=== PATIENT | male | born 1950 | race Caucasian/White ===

== ENCOUNTER 2016-09-25 13:37 | Outpatient (CLI) | payer MEDICARE, OTHER ==
[2016-09-25 16:39] LABS: Anion Gap 17 mmol/L (10-20); BUN (Urea Nitrogen) 97 mg/dL (8.4-25.7); Calc. Creatinine Clearance 0 mL/min (70-130); Calcium 9.3 mg/dL (7.8-10.44); Carbon Dioxide 20 mmol/L (23-31); Chloride 107 mmol/L (98-107); Estimated GFR-MDRD 22
== END 2016-09-25 13:38 | disposition home or self-care (01) ==
LOC: BURLAB 13:37
PROVIDERS: ATTEND Internal Medicine Nephrology
DX: N18.3 Chronic kidney disease, stage 3 (moderate) (principal)
CPT/HCPCS: 36415; 80048

== ENCOUNTER 2016-10-25 09:44 | Outpatient (CLI) | payer MEDICARE, OTHER ==
[2016-10-25 11:01] LABS: Anion Gap 16 mmol/L (10-20); BUN (Urea Nitrogen) 94 mg/dL (8.4-25.7); Calc. Creatinine Clearance 0 mL/min (70-130); Calcium 8.9 mg/dL (7.8-10.44); Carbon Dioxide 26 mmol/L (23-31); Chloride 99 mmol/L (98-107); Estimated GFR-MDRD 24
== END 2016-10-25 09:45 | disposition home or self-care (01) ==
LOC: BURLAB 09:44
PROVIDERS: ATTEND Internal Medicine Nephrology
DX: N18.4 Chronic kidney disease, stage 4 (severe) (principal)
CPT/HCPCS: 36415; 80048

== ENCOUNTER 2016-11-03 15:55 | Outpatient (CLI) | payer MEDICARE, OTHER ==
[2016-11-03 18:20] LABS: Hematocrit 32.5 % (42.0-52.0)
[2016-11-03 18:27] LABS: Calc. Creatinine Clearance 0 mL/min (70-130); Estimated GFR-MDRD 17; Magnesium 1.6 mg/dL (1.6-2.6)
== END 2016-11-03 15:56 | disposition home or self-care (01) ==
LOC: BURLAB 15:55
PROVIDERS: ATTEND Internal Medicine Nephrology
DX: N18.3 Chronic kidney disease, stage 3 (moderate) (principal)
CPT/HCPCS: 36415; 82565; 83735; 84132; 85014; 85018

== ENCOUNTER 2017-02-26 14:10 | Outpatient (CLI) | payer MEDICARE, OTHER ==
[2017-02-26 16:01] LABS: Hemoglobin 8.8 g/dL (14.0-18.0)
[2017-02-26 16:20] LABS: Anion Gap 19 mmol/L (10-20); BUN (Urea Nitrogen) 110 mg/dL (8.4-25.7); Calc. Creatinine Clearance 0 mL/min (70-130); Calcium 8.5 mg/dL (7.8-10.44); Carbon Dioxide 16 mmol/L (23-31); Chloride 110 mmol/L (98-107); Estimated GFR-MDRD 19; Glucose 91 mg/dL (80-115); Potassium 3.9 mmol/L (3.5-5.1); Sodium 141 mmol/L (136-145)
== END 2017-02-26 14:11 | disposition home or self-care (01) ==
LOC: BURLAB 14:10
PROVIDERS: ATTEND Internal Medicine Nephrology
DX: N18.3 Chronic kidney disease, stage 3 (moderate) (principal); D63.1 Anemia in chronic kidney disease; R60.0 Localized edema
CPT/HCPCS: 36415; 80048; 85014; 85018

== ENCOUNTER 2017-04-27 16:09 | Inpatient (IN) | payer MEDICARE, OTHER ==
[2017-04-27] MEDS: HumaLOG 300 UNITS/3 ML VIAL SC SCH (18:29)
[2017-04-27] MEDS ORDERED: INSULIN DETEMIR SQ SCH (21:00)
[2017-04-27] MEDS: Furosemide 40 MG TAB PO SCH (21:22)
[2017-04-27] MEDS: Levemir Flexpen 100 UNITS/ML PEN SC SCH (21:22)
[2017-04-27] MEDS: Heparin 5,000 UNITS/ML VIAL SC SCH (21:22)
[2017-04-27] MEDS: Sodium Bicarbonate Tab 325 MG TAB PO SCH (21:23)
[2017-04-28] MEDS: Levothyroxine Sodium 25 MCG TAB PO SCH (06:03)
[2017-04-28] MEDS ORDERED: Heparin 5,000 UNITS/ML VIAL ONE ×2 (08:20→21:33)
[2017-04-28] MEDS: HumaLOG 300 UNITS/3 ML VIAL SC SCH ×3 (08:46→17:07)
[2017-04-28] MEDS: Levemir Flexpen 100 UNITS/ML PEN SC SCH ×2 (08:48→21:40)
[2017-04-28] MEDS: Ferrous Sulfate 325 MG TAB PO SCH (08:51)
[2017-04-28] MEDS: Furosemide 40 MG TAB PO SCH ×2 (08:53→20:12)
[2017-04-28] MEDS: Atorvastatin Calcium 10 MG TAB PO SCH (08:53)
[2017-04-28] MEDS: Heparin 5,000 UNITS/ML VIAL SC SCH ×2 (08:54→21:41)
[2017-04-28] MEDS: Folic Acid 1 MG TAB PO SCH (08:54)
[2017-04-28] MEDS: (Sevelamer Carbonate [Renvela] 800 MG) PO SCH ×3 (08:56→17:14)
[2017-04-28] MEDS: Sodium Bicarbonate Tab 325 MG TAB PO SCH ×3 (08:59→20:12)
[2017-04-28] MEDS: Acetaminophen 325 MG TAB PO PRN (20:12)
[2017-04-29] MEDS: Levothyroxine Sodium 25 MCG TAB PO SCH (05:44)
[2017-04-29] MEDS: Acetaminophen 325 MG TAB PO PRN ×2 (05:44→17:41)
[2017-04-29] MEDS ORDERED: Heparin 5,000 UNITS/ML VIAL ONE ×2 (08:21→21:02)
[2017-04-29] MEDS: Ferrous Sulfate 325 MG TAB PO SCH (08:33)
[2017-04-29] MEDS: (Sevelamer Carbonate [Renvela] 800 MG) PO SCH ×3 (08:34→17:39)
[2017-04-29] MEDS: Atorvastatin Calcium 10 MG TAB PO SCH (08:35)
[2017-04-29] MEDS: Furosemide 40 MG TAB PO SCH ×2 (08:36→21:38)
[2017-04-29] MEDS: Folic Acid 1 MG TAB PO SCH (08:36)
[2017-04-29] MEDS: Sodium Bicarbonate Tab 325 MG TAB PO SCH ×3 (08:37→21:38)
[2017-04-29] MEDS: Heparin 5,000 UNITS/ML VIAL SC SCH ×2 (08:38→21:38)
[2017-04-29] MEDS: Levemir Flexpen 100 UNITS/ML PEN SC SCH ×2 (08:39→21:40)
[2017-04-29] MEDS: HumaLOG 300 UNITS/3 ML VIAL SC SCH ×3 (08:40→17:39)
[2017-04-29] MEDS ORDERED: Metolazone 5 MG TAB PO SCH (10:30)
[2017-04-30] MEDS: Levothyroxine Sodium 25 MCG TAB PO SCH (05:48)
[2017-04-30 05:53] LABS: ALT (SGPT) 8 U/L (8-55); AST (SGOT) 44 U/L (5-34); Albumin 2.9 g/dL (3.4-4.8); Alkaline Phosphatase 183 U/L (40-150); Anion Gap 16 mmol/L (10-20); BUN (Urea Nitrogen) 102 mg/dL (8.4-25.7); Bilirubin, Total 1.2 mg/dL (0.2-1.2); Calc. Creatinine Clearance 46 mL/min (70-130); Calcium 8.1 mg/dL (7.8-10.44); Carbon Dioxide 23 mmol/L (23-31); Chloride 107 mmol/L (98-107); Estimated GFR-MDRD 24; Globulin 3.6 g/dL (2.4-3.5); Glucose 88 mg/dL (80-115); Potassium 3.2 mmol/L (3.5-5.1); Protein, Total 6.5 g/dL (5.8-8.1); Sodium 143 mmol/L (136-145)
[2017-04-30 06:51] LABS: #Basophils 0.1 thou/uL (0.0-0.2); #Eosinphils 0.3 thou/uL (0.0-0.7); #Lymphocytes 0.9 thou/uL (1.20-3.40); #Monocytes 0.7 thou/uL (0.11-0.59); #Neutrophils 3.2 thou/uL (1.40-6.50); %Eosinophils 6.2 % (0.0-10.0); %Monocytes 13.6 % (0.0-10.0); %Neutrophils 61.3 % (42.0-75.0); Hemoglobin 8.4 g/dL (14.0-18.0); Mean Corpuscular Hemoglobin 33.8 pg (27.0-31.0); Platelet Count 115 thou/uL (130-400); RBC Distribution Width 15.9 % (11.5-14.5); Red Blood Cell (RBC) Count 2.47 mill/uL (4.70-6.10); White Blood Cell (WBC) Count 5.3 thou/uL (4.8-10.8)
[2017-04-30] MEDS ORDERED: Heparin 5,000 UNITS/ML VIAL ONE (08:43)
[2017-04-30] MEDS: Ferrous Sulfate 325 MG TAB PO SCH (08:46)
[2017-04-30] MEDS: (Sevelamer Carbonate [Renvela] 800 MG) PO SCH ×3 (08:48→17:06)
[2017-04-30] MEDS: Atorvastatin Calcium 10 MG TAB PO SCH (08:48)
[2017-04-30] MEDS: Furosemide 40 MG TAB PO SCH ×2 (08:50→21:18)
[2017-04-30] MEDS: Folic Acid 1 MG TAB PO SCH (08:50)
[2017-04-30] MEDS: Sodium Bicarbonate Tab 325 MG TAB PO SCH ×3 (08:51→21:18)
[2017-04-30] MEDS: Metolazone 5 MG TAB PO SCH (08:51)
[2017-04-30] MEDS ORDERED: Levemir Flexpen 100 UNITS/ML PEN SC SCH (09:00)
[2017-04-30] MEDS: Heparin 5,000 UNITS/ML VIAL SC SCH ×2 (10:49→21:18)
[2017-04-30] MEDS: HumaLOG 300 UNITS/3 ML VIAL SC SCH (10:54)
[2017-04-30] MEDS ORDERED: Potassium Chloride 20 MEQ TAB PO SCH (12:00)
[2017-04-30] MEDS: Levemir Flexpen 100 UNITS/ML PEN SC SCH (21:19)
[2017-05-01] MEDS: Acetaminophen 325 MG TAB PO PRN ×2 (02:38→13:26)
[2017-05-01] MEDS: Levothyroxine Sodium 25 MCG TAB PO SCH (05:40)
[2017-05-01] MEDS: Ferrous Sulfate 325 MG TAB PO SCH (08:09)
[2017-05-01] MEDS: (Sevelamer Carbonate [Renvela] 800 MG) PO SCH ×3 (08:09→17:33)
[2017-05-01] MEDS: Atorvastatin Calcium 10 MG TAB PO SCH (08:10)
[2017-05-01] MEDS: Potassium Chloride 20 MEQ TAB PO SCH (08:10)
[2017-05-01] MEDS: Furosemide 40 MG TAB PO SCH ×2 (08:11→20:45)
[2017-05-01] MEDS: Folic Acid 1 MG TAB PO SCH (08:11)
[2017-05-01] MEDS: Sodium Bicarbonate Tab 325 MG TAB PO SCH ×3 (08:12→20:45)
[2017-05-01] MEDS: Levemir Flexpen 100 UNITS/ML PEN SC SCH ×2 (08:17→20:45)
[2017-05-01] MEDS: Heparin 5,000 UNITS/ML VIAL SC SCH ×2 (08:18→20:46)
[2017-05-01] MEDS: traMADol HCl 50 MG TAB PO PRN (11:14)
[2017-05-02] MEDS: Levothyroxine Sodium 25 MCG TAB PO SCH (05:35)
[2017-05-02] MEDS: traMADol HCl 50 MG TAB PO PRN (05:35)
[2017-05-02] MEDS: Atorvastatin Calcium 10 MG TAB PO SCH (08:58)
[2017-05-02] MEDS: Furosemide 40 MG TAB PO SCH ×2 (08:58→20:58)
[2017-05-02] MEDS: Sodium Bicarbonate Tab 325 MG TAB PO SCH ×3 (08:58→20:58)
[2017-05-02] MEDS: Metolazone 5 MG TAB PO SCH (08:59)
[2017-05-02] MEDS: Potassium Chloride 20 MEQ TAB PO SCH (09:00)
[2017-05-02] MEDS: Ferrous Sulfate 325 MG TAB PO SCH (09:00)
[2017-05-02] MEDS: Folic Acid 1 MG TAB PO SCH (09:00)
[2017-05-02] MEDS: Heparin 5,000 UNITS/ML VIAL SC SCH ×2 (09:01→20:59)
[2017-05-02] MEDS: (Sevelamer Carbonate [Renvela] 800 MG) PO SCH ×3 (09:04→18:31)
[2017-05-02] MEDS: Levemir Flexpen 100 UNITS/ML PEN SC SCH ×2 (09:17→20:59)
[2017-05-03] MEDS: traMADol HCl 50 MG TAB PO PRN (03:41)
[2017-05-03] MEDS: Levothyroxine Sodium 25 MCG TAB PO SCH (05:15)
[2017-05-03 06:14] VITALS: BMI 41.5
[2017-05-03 06:16] LABS: ALT (SGPT) 9 U/L (8-55); AST (SGOT) 39 U/L (5-34); Albumin 2.9 g/dL (3.4-4.8); Alkaline Phosphatase 219 U/L (40-150); Anion Gap 16 mmol/L (10-20); BUN (Urea Nitrogen) 108 mg/dL (8.4-25.7); Calc. Creatinine Clearance 39 mL/min (70-130); Calcium 7.8 mg/dL (7.8-10.44); Carbon Dioxide 23 mmol/L (23-31); Chloride 106 mmol/L (98-107); Estimated GFR-MDRD 19; Globulin 3.2 g/dL (2.4-3.5); Glucose 95 mg/dL (80-115); Potassium 3.7 mmol/L (3.5-5.1); Protein, Total 6.1 g/dL (5.8-8.1); Sodium 141 mmol/L (136-145)
[2017-05-03 07:24] LABS: Hemoglobin 7.9 g/dL (14.0-18.0); Mean Corpuscular HGB CONC 32.7 g/dL (32.0-36.0); Mean Corpuscular Hemoglobin 33.2 pg (27.0-31.0); Mean Platelet Volume 7.3 fL (7.4-10.4); Platelet Count 144 thou/uL (130-400); RBC Distribution Width 15.2 % (11.5-14.5); Red Blood Cell (RBC) Count 2.38 mill/uL (4.70-6.10); White Blood Cell (WBC) Count 4.7 thou/uL (4.8-10.8)
[2017-05-03 08:18] LABS: Eosinophils 4 % (0-10); Lymphocytes 23 % (21-51); MDiff Complete? YES; Monocytes 8 % (0-10); Neutrophil 64 % (42-75)
[2017-05-03] MEDS: (Sevelamer Carbonate [Renvela] 800 MG) PO SCH ×3 (08:46→17:25)
[2017-05-03] MEDS: Levemir Flexpen 100 UNITS/ML PEN SC SCH ×2 (08:47→21:16)
[2017-05-03] MEDS: Heparin 5,000 UNITS/ML VIAL SC SCH ×2 (08:48→21:16)
[2017-05-03] MEDS: Ferrous Sulfate 325 MG TAB PO SCH (08:49)
[2017-05-03] MEDS: Sodium Bicarbonate Tab 325 MG TAB PO SCH ×3 (08:49→21:15)
[2017-05-03] MEDS: Folic Acid 1 MG TAB PO SCH (08:49)
[2017-05-03] MEDS: Atorvastatin Calcium 10 MG TAB PO SCH (08:49)
[2017-05-03] MEDS: Furosemide 40 MG TAB PO SCH ×2 (08:50→21:15)
[2017-05-03] MEDS: Potassium Chloride 20 MEQ TAB PO SCH (08:50)
[2017-05-04] MEDS: Levothyroxine Sodium 25 MCG TAB PO SCH (05:49)
[2017-05-04 06:27] VITALS: BP 128/60; TEMP 97.7
[2017-05-04] MEDS: Acetaminophen 325 MG TAB PO PRN (07:44)
[2017-05-04] MEDS: (Sevelamer Carbonate [Renvela] 800 MG) PO SCH (07:44)
[2017-05-04] MEDS: Potassium Chloride 20 MEQ TAB PO SCH (07:45)
[2017-05-04] MEDS: Ferrous Sulfate 325 MG TAB PO SCH (07:45)
[2017-05-04] MEDS: Folic Acid 1 MG TAB PO SCH (08:30)
[2017-05-04] MEDS: Atorvastatin Calcium 10 MG TAB PO SCH (08:31)
[2017-05-04] MEDS: Furosemide 40 MG TAB PO SCH (08:32)
[2017-05-04] MEDS: Sodium Bicarbonate Tab 325 MG TAB PO SCH (08:33)
[2017-05-04] MEDS: Heparin 5,000 UNITS/ML VIAL SC SCH (08:36)
[2017-05-04] MEDS: Levemir Flexpen 100 UNITS/ML PEN SC SCH (08:37)
[2017-05-04] MEDS ORDERED: Metolazone 5 MG TAB PO SCH (09:00)
--- NOTE | 2017-05-04 15:07 | DIS ---
DATE OF ADMISSION: 04/27/2017 DATE OF DISCHARGE: 05/04/2017 ADMISSION DIAGNOSES: Physical deconditioning; lymphedema; chronic kidney disease, stage 4; insulin- dependent diabetes mellitus; hypertension; hyperlipidemia; hypothyroidism. SECONDARY DIAGNOSES: Bradycardia, hypokalemia. PROCEDURES: None. HOSPITAL COURSE: A 67-year-old male transitioned to our facility to participate with PT/OT secondar y to hospital admission at [facility] in [place], where he was diuresed for volume overload and tr eated for acute worsening of chronic kidney disease. He had been evaluated by Dr. Blackburn with horacio lópez done for AV fistula, which is currently in the maturing process. The patient was continued on his usual medications here; however, did have potassium supplemented to treat his hypokalemia. He d id have some weight gain during his stay, 5 pounds in total, and secondary to this the Zaroxolyn was increased from Sunday, Sunday, and Sunday dosing to daily dosing. The patient had noted bradyca rdia during his stay and thus had followup appointment scheduled with Dr. Waterman with reduction of his metoprolol dose from 50 mg b.i.d. to 25 mg. He otherwise had no significant issues during his stay and was able to participate with PT, OT satisfactorily to meet the goals for them to deem him a ppropriate for discharge to home. He will continue further physical therapy at [facility]. DISPOSITION: He will be discharged to his home setting and will follow up with his primary care pro vider, Dr. Gera Rooney within the next week. DISCHARGE MEDICATIONS: Aspirin 81 mg p.o. daily, Lipitor 20 mg p.o. at bedtime, cholecalciferol b.i .d., ferrous sulfate 325 mg p.o. daily, folic acid 1 mg p.o. daily, Lasix 80 mg p.o. b.i.d., Levemir 5 units b.i.d., levothyroxine 75 mcg p.o. daily, Zaroxolyn 2.5 mg p.o. daily, metoprolol succinate 25 mg p.o. daily, Protonix 40 mg p.o. daily, Renvela 800 mg p.o. t.i.d., potassium chloride 20 mEq p .o. daily, sodium bicarbonate 325 mg p.o. t.i.d., and tramadol 50 mg p.o. q.6 hours p.r.n. pain.
== END 2017-05-04 14:00 | disposition home or self-care (01) | DRG 683 ==
LOC: BURMED 16:44
PROVIDERS: ADMIT Family Medicine; ATTEND Family Medicine
DX: I12.9 Hypertensive chronic kidney disease with stage 1 through stage 4 chronic kidney disease, or unspecified chronic kidney disease (principal); N18.4 Chronic kidney disease, stage 4 (severe); E11.22 Type 2 diabetes mellitus with diabetic chronic kidney disease; Z95.828 Presence of other vascular implants and grafts; E87.6 Hypokalemia; Z79.4 Long term (current) use of insulin; I89.0 Lymphedema, not elsewhere classified; E78.5 Hyperlipidemia, unspecified; E03.9 Hypothyroidism, unspecified; R00.1 Bradycardia, unspecified
CPT/HCPCS: 36415; 36416; 80053; 85025; G8978-GP-CK; G8979-GP-CI; G8987-GO-CL; G8988-GO-CI; J1644; J1815

== ENCOUNTER 2017-05-16 15:18 | Outpatient (CLI) | payer MEDICARE, OTHER ==
[2017-05-16 15:38] LABS: Hemoglobin 8.7 g/dL (14.0-18.0)
[2017-05-16 16:07] LABS: Anion Gap 20 mmol/L (10-20); BUN (Urea Nitrogen) 138 mg/dL (8.4-25.7); Calc. Creatinine Clearance 0 mL/min (70-130); Calcium 8.3 mg/dL (7.8-10.44); Carbon Dioxide 17 mmol/L (23-31); Chloride 107 mmol/L (98-107); Estimated GFR-MDRD 10; Glucose 112 mg/dL (80-115); Potassium 3.9 mmol/L (3.5-5.1); Sodium 140 mmol/L (136-145)
== END 2017-05-16 15:19 | disposition home or self-care (01) ==
LOC: BURLAB 15:18
PROVIDERS: ATTEND Internal Medicine Nephrology
DX: N18.4 Chronic kidney disease, stage 4 (severe) (principal); D63.1 Anemia in chronic kidney disease
CPT/HCPCS: 36415; 80048; 85014; 85018

== ENCOUNTER 2017-06-06 10:11 | Outpatient (CLI) | payer MEDICARE, OTHER ==
--- NOTE | 2017-06-06 18:52 | ULT ---
LEFT LOWER EXTREMITY VENOUS ULTRASOUND 06/06/17 Color duplex doppler ultrasonography of the deep veins of the left lower extremity was performed. Al l deep veins were freely compressible from groin to ankle. There was normal doppler response to augm entation maneuvers. No echogenic clot was seen. IMPRESSION: No evidence of DVT. POS: HOME
== END 2017-06-06 10:12 | disposition home or self-care (01) ==
LOC: BURULT 10:11
PROVIDERS: ATTEND Family Medicine
DX: R60.0 Localized edema (principal)

== ENCOUNTER 2017-10-18 15:20 | Outpatient (CLI) | payer MEDICARE, OTHER ==
--- NOTE | 2017-10-18 22:03 | RAD ---
RIGHT TOES 10/18/17 Comparison is made with a 08/03/15 study of the foot. 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 The remaining s econd metatarsal head is somewhat deformed and slightly lucent. This may be longstanding, however. Th ere is no obvious bone in the third toe apart from the very base of the proximal phalanx. This was no t the case in 2014. I do not have more recent studies to know if surgery has been done here or if the re has been infection. This toe does seem to be greatly swollen. The fourth and fifth toes appear scarlett ssly intact. The IP joint of the great toe is abnormal, particularly on the side of the proximal phal anx. Again, I do not know if this is erosion over time, due to infection, or prior surgery. Slight de formity of the distal phalanx of the great toe has progressed over time. The first MTP joint is erode d. Arterial calcifications are seen throughout. A large calcaneal spur is present. IMPRESSION: Marked swelling of what I presumed to be the third toe, but no bone is seen in this toe other than th e base of the proximal phalanx. I presume that there has been osteomyelitis. It would be useful if a more recent study were available for comparison. POS: HOME
== END 2017-10-18 15:21 | disposition home or self-care (01) ==
LOC: BURRAD 15:20
PROVIDERS: ATTEND Podiatrist Foot & Ankle Surgery
DX: L97.514 Non-pressure chronic ulcer of other part of right foot with necrosis of bone (principal)

== ENCOUNTER 2018-12-17 20:33 | Emergency (ER) | payer MEDICARE, MEDICAID | END 2018-12-17 21:04 | disposition home or self-care (01) | LOC: BURERS 20:33 | DX: S91.051A Open bite, right ankle, initial encounter (principal); S61.452A Open bite of left hand, initial encounter; S61.412A Laceration without foreign body of left hand, initial encounter; I48.91 Unspecified atrial fibrillation; E11.9 Type 2 diabetes mellitus without complications; Z79.4 Long term (current) use of insulin; Z99.2 Dependence on renal dialysis; Z79.899 Other long term (current) drug therapy; Z79.82 Long term (current) use of aspirin; W53.11XA Bitten by rat, initial encounter | CPT/HCPCS: 99283 ==

== ENCOUNTER 2019-05-27 00:44 | Emergency (ER) | payer MEDICARE, MEDICAID ==
[2019-05-27] MEDS ORDERED: Lidocaine Viscous Sol 2% 15 ml UD Cup ONE (01:08)
[2019-05-27] MEDS ORDERED: Mag-Al Plus 1200 MG/1200 MG/120 MG/30 ML UDCUP ONE (01:08)
[2019-05-27] MEDS ORDERED: Ondansetron ODT 4 MG TAB ONE (01:08)
[2019-05-27 01:44] LABS: #Basophils 0.1 thou/uL (0.0-0.2); #Eosinphils 0.1 thou/uL (0.0-0.7); #Lymphocytes 1.1 thou/uL (1.20-3.40); #Monocytes 0.4 thou/uL (0.11-0.59); %Basophils 1.2 % (0.0-1.0); %Eosinophils 2.3 % (0.0-10.0); %Lymphocytes 22.9 % (21.0-51.0); %Monocytes 9.4 % (0.0-10.0); %Neutrophils 64.3 % (42.0-75.0); Hemoglobin 11.2 g/dL (14.0-18.0); Mean Corpuscular HGB CONC 31.2 g/dL (32.0-36.0); Mean Corpuscular Hemoglobin 32.9 pg (27.0-31.0); Mean Platelet Volume 6.6 fL (7.4-10.4); Platelet Count 130 thou/uL (130-400); RBC Distribution Width 13.4 % (11.5-14.5); White Blood Cell (WBC) Count 4.6 thou/uL (4.8-10.8)
[2019-05-27 01:48] LABS: Macrocytosis SLIGHT = 6-15 cells (100X) (0-5/hpf); Platelet Morphology Comment Appears Adequate; Small Platelets SLIGHT
[2019-05-27 01:52] LABS: AST (SGOT) 29 U/L (5-34); Anion Gap 20 mmol/L (10-20); Bilirubin, Total 0.8 mg/dL (0.2-1.2); Calc. Creatinine Clearance 0 mL/min (70-130); Calcium 9.3 mg/dL (7.8-10.44); Carbon Dioxide 25 mmol/L (23-31); Chloride 99 mmol/L (98-107); Estimated GFR-MDRD 10; Potassium 3.5 mmol/L (3.5-5.1); Sodium 140 mmol/L (136-145)
[2019-05-27 01:54] LABS: CKMB 1.6 ng/mL (0-6.6)
[2019-05-27 01:58] LABS: ALT (SGPT) 14 U/L (8-55); Alkaline Phosphatase 117 U/L (40-150); BUN (Urea Nitrogen) 22 mg/dL (8.4-25.7); Glucose 135 mg/dL (80-115)
[2019-05-27] MEDS ORDERED: Aspirin Chewable 81 MG TAB ONE (02:00)
--- NOTE | 2019-05-27 07:38 | RAD ---
PORTABLE CHEST: Date: 05/27/19 An AP portable film at 0118 hours is compared with the 04/07/19 study from [facility]. The cardiomegaly is about the same as before. Prominence of the paratracheal tissues is thought to be tortuous great vessels and is no different than before. There is no deviation of the trachea. There is no vascular congestion, edema, or pleural effusion. No focal pulmonary infiltrate seen. IMPRESSION: Cardiomegaly, similar to the prior study. POS: HOME
== END 2019-05-27 02:20 | disposition short-term general hospital (02) ==
LOC: BURERS 00:44
DX: R07.2 Precordial pain (principal); I95.9 Hypotension, unspecified; R09.02 Hypoxemia; I49.9 Cardiac arrhythmia, unspecified; I48.91 Unspecified atrial fibrillation; Z79.4 Long term (current) use of insulin; E11.22 Type 2 diabetes mellitus with diabetic chronic kidney disease; Z99.2 Dependence on renal dialysis; Z79.899 Other long term (current) drug therapy; Z79.82 Long term (current) use of aspirin
CPT/HCPCS: 71045; 80053; 82553; 84484; 85025; 93005; Q0162

== ENCOUNTER 2019-08-11 16:54 | Emergency (ER) | payer MEDICARE, MEDICAID ==
[2019-08-11] MEDS ORDERED: Acetaminophen 500 MG TAB ONE (17:40)
[2019-08-11 17:52] LABS: Hemoglobin 11.7 g/dL (14.0-18.0); Mean Corpuscular HGB CONC 31.4 g/dL (32.0-36.0); Mean Corpuscular Hemoglobin 32.9 pg (27.0-31.0); Mean Platelet Volume 8.2 fL (7.4-10.4); Platelet Count 93 thou/uL (130-400); RBC Distribution Width 13.9 % (11.5-14.5); Red Blood Cell (RBC) Count 3.55 mill/uL (4.70-6.10); White Blood Cell (WBC) Count 3.5 thou/uL (4.8-10.8)
[2019-08-11 17:58] LABS: ALT (SGPT) 16 U/L (8-55); AST (SGOT) 40 U/L (5-34); Albumin 3.6 g/dL (3.4-4.8); Alkaline Phosphatase 88 U/L (40-110); Anion Gap 18 mmol/L (10-20); BUN (Urea Nitrogen) 20 mg/dL (8.4-25.7); Calc. Creatinine Clearance 0 mL/min (70-130); Calcium 8.3 mg/dL (7.8-10.44); Carbon Dioxide 28 mmol/L (23-31); Chloride 92 mmol/L (98-107); Estimated GFR-MDRD 10; Globulin 4.2 g/dL (2.4-3.5); Glucose 101 mg/dL (80-115); Protein, Total 7.8 g/dL (5.8-8.1); Sodium 135 mmol/L (136-145)
[2019-08-11 18:01] LABS: #Basophils 0.1 thou/uL (0.0-0.2); #Lymphocytes 0.4 thou/uL (1.20-3.40); #Monocytes 0.4 thou/uL (0.11-0.59); #Neutrophils 2.7 thou/uL (1.40-6.50); %Basophils 2.3 % (0.0-1.0); %Eosinophils 0.1 % (0.0-10.0); %Lymphocytes 9.9 % (21.0-51.0); %Monocytes 11.5 % (0.0-10.0); %Neutrophils 76.1 % (42.0-75.0); Band 15 % (5-11); Lymphocytes 10 % (21-51); MDiff Complete? YES; Macrocytosis MODERATE=16-30 cells (100X) (0-5/hpf); Monocytes 8 % (0-10); Neutrophil 64 % (42-75); Reactive Lymphocytes 2 % (0-10)
[2019-08-11] MEDS ORDERED: Sodium Chloride 0.9% 100 ML ONE (18:56)
[2019-08-11] MEDS ORDERED: Piperacillin/Tazobactam 4.5 GM VIAL ONE (18:56)
--- NOTE | 2019-08-11 19:48 | RAD ---
CHEST TWO VIEWS: 08/11/2019 COMPARISON: 05/27/2009 FINDINGS: The heart is mildly enlarged. The vessels seem mildly congested today and there is also a small left pleural effusion. Findings suggest changes of congestive heart failure. An old healed fracture is not ed on the right. No lobar consolidations were seen. IMPRESSION: Mild congestive changes. POS: HOME
== END 2019-08-11 19:55 | disposition short-term general hospital (02) ==
LOC: BURERS 16:54
DX: J18.9 Pneumonia, unspecified organism (principal); I95.9 Hypotension, unspecified; I49.9 Cardiac arrhythmia, unspecified; I48.91 Unspecified atrial fibrillation; E11.9 Type 2 diabetes mellitus without complications; Z79.4 Long term (current) use of insulin; Z99.2 Dependence on renal dialysis; Z79.82 Long term (current) use of aspirin; Z79.899 Other long term (current) drug therapy
CPT/HCPCS: 36415; 71046; 80053; 85025; 87040; 87804; 93005; 96365; 96367; J1956; J2543; J3370; J3490; J7620

== ENCOUNTER 2020-08-20 18:10 | Emergency (ER) | payer MEDICARE, MEDICAID ==
--- NOTE | 2020-08-20 18:45 | CT ---
CT HEAD WITHOUT IV CONTRAST COMPARISON: None HISTORY: Injury to head. Patient fell and hit back of head. Laceration posteriorly. TECHNIQUE: Axial CT imaging at 5 mm intervals from vertex through skull base without contrast FINDINGS: There is no evidence of an acute infarction, hemorrhage, mass effect, or midline shift. There is mild cerebral volume loss. Ventricular system is normal in size, shape, and position for the degree of sulcal atrophy. Vascular calcifications are seen in the distal vertebral arteries and in the carotid siphons. Minimal mucosal thickening left maxillary antrum. The mastoid air cells are clear Osseous structures appear intact.No calvarial fracture is seen. IMPRESSION: 1. No acute intracranial abnormality demonstrated.
== END 2020-08-20 19:02 | disposition home or self-care (01) ==
LOC: BURERS 18:10
DX: S41.112A Laceration without foreign body of left upper arm, initial encounter (principal); S41.111A Laceration without foreign body of right upper arm, initial encounter; S00.01XA Abrasion of scalp, initial encounter; R51.9 Headache, unspecified; I48.91 Unspecified atrial fibrillation; E11.9 Type 2 diabetes mellitus without complications; Z79.899 Other long term (current) drug therapy; W01.10XA Fall on same level from slipping, tripping and stumbling with subsequent striking against unspecified object, initial encounter
CPT/HCPCS: 70450